=== PATIENT | male | born 1970 | race Caucasian/White ===

== ENCOUNTER 2020-04-03 00:49 | Outpatient (CLI) | payer OTHER, SELFPAY ==
[2020-04-03 17:41] LABS: SARS-CoV-2 RNA PCR Negative
== END 2020-04-03 00:50 | disposition home or self-care (01) ==
LOC: ANHCOVIDDT 00:49
PROVIDERS: PCP Family Medicine; Visit Provider Internal Medicine Gastroenterology
DX: Z01.812 Encounter for preprocedural laboratory examination (principal); Z20.828 Contact with and (suspected) exposure to other viral communicable diseases
CPT/HCPCS: 87635; C9803; U0003

== ENCOUNTER 2020-04-05 01:53 | Day surgery (SDC) | payer OTHER, SELFPAY ==
[2020-03-30 10:59] VITALS: BMI 31.6
[2020-04-05 07:42] VITALS: BP 124/76; PULSE 68; RESP 18; TEMP 36.6; O2SAT 98
[2020-04-05] MEDS: LACTATED RINGERS 1,000 ML 150 ML IV CONT (07:55)
--- NOTE | 2020-04-05 08:08 | P.HP_ITS ---
History of Present Illness History of Present Illness Consent: Risks, benefits, and alternatives have been discussed and questions answered. Patient agrees to proceed with procedure. Chief complaint: Dysphagia/Neoplasm Screening Narrative: Eric Hinds is a 49 year old male With dysphagia for solid food. He has a history of an esophageal stricture. He is also undergoing screening for colon cancer [facility] Family History Family History Mother Hypertension Social History Social History Smoking status: Never smoker Alcohol intake: current Drinks per week: 6 Alcohol use details: BEERS Substance use: never Substance use type: does not use Living arrangements: with family Gender identity (if verbalized by the patient): Male Spiritual care concerns: No Meds Home Medications and Allergies Home Medications Medication Instructions Recorded Confirmed Type No Home Medications 03/30/20 03/30/20 History Allergies Allergy/AdvReac Type Severity Reaction Status Date / Time No Known Allergies Allergy Unknown Verified 04/05/20 07:41 Vital Signs Vital Signs - 24 hr 04/05/20 07:42 Temperature 36.6 C Pulse Rate 68 Respiratory Rate 18 Blood Pressure 124/76 Pulse Oximetry 98 Exam Const: General: alert Orientation/consciousness: patient oriented x3 Resp: Auscultation: clear to auscultation bilaterally Cardio: Rhythm: regular rhythm GI: GI Palp: Yes Soft to palpation and No Tenderness to palpation present (GI) Neuro: General: patient oriented x3 Assessment and Plan Assessment and plan (1) Dysphagia: Code(s): R13.10 - Dysphagia, unspecified Status: Acute Assessment and Plan: EGD with possible biopsy or dilatation or cautery. (2) Colon cancer screening: Code(s): Z12.11 - Encounter for screening for malignant neoplasm of colon Status: Acute Assessment and Plan: Colonoscopy with possible biopsy or polypectomy or cautery or injection of substances.
--- NOTE | 2020-04-05 08:34 | WPDANESEPPF ---
Anes - Initial Pre Proc Eval Procedure: Operation Date: 04/05/20 08:30 Proposed Procedures p Esophagogastroduodenoscopy & Screening Colonoscopy - Elvin Jasso MD Date/Time: 04/05/20 08:34 Surgeon: lEvin Jasso MD Pre Op Diagnosis: Dysphagia/Neoplasm Screening Patient Data Age: 49 Gender: M Height: 5 ft 10 in Weight: 98 kg Last Vital Signs Temp 97.8 F 04/05/20 07:42 Pulse 68 04/05/20 07:42 Resp 18 04/05/20 07:42 BP 124/76 04/05/20 07:42 Pulse Ox 98 04/05/20 07:42 Allergies Allergy/AdvReac Type Severity Reaction Status Date / Time No Known Allergies Allergy Unknown Verified 04/05/20 07:41 Home Medications Medication Instructions Recorded Confirmed Type No Home Medications 03/30/20 03/30/20 History Patient hx anesthesia problems: none Family hx anesthesia problems: none PMFSH Past Medical History Medical History (Updated 04/05/20 @ 08:34 by Darren Nj MD) GERD (gastroesophageal reflux disease) Family History Family History Mother Hypertension Social History Social History Smoking status: Never smoker Alcohol intake: current Drinks per week: 6 Alcohol use details: BEERS Substance use: never Substance use type: does not use Living arrangements: with family Gender identity (if verbalized by the patient): Male Spiritual care concerns: No Anes - Eval Final PreProcedure Day of Procedure 04/05/20 08:34 Patient weight: overweight Heart: regular rate and rhythm Lungs: clear to auscultation Airway: Mallampati scale class II Neurological: alert and oriented Last oral intake: >/= 8 hours ASA classification: II Emergent: no Anesthetic plan: proceed Anesthesia type and monitoring: general GIVS and standard monitoring Informed Consent: The patient's anesthetic plan and its attendant risks and benefits were discussed with the patient/family/POA. Questions were solicited and answers provided to the satisfaction of the patient/family/POA.
--- NOTE | 2020-04-05 08:38 | WPDANESEPPF ---
Anes - Initial Pre Proc Eval Procedure: Operation Date: 04/05/20 08:30 Proposed Procedures p Esophagogastroduodenoscopy & Screening Colonoscopy - Elvin Jasso MD Date/Time: 04/05/20 08:38 Surgeon: Elvin Jasso MD Pre Op Diagnosis: Dysphagia/Neoplasm Screening Patient Data Age: 49 Gender: M Height: 5 ft 10 in Weight: 98 kg Last Vital Signs Temp 97.8 F 04/05/20 07:42 Pulse 68 04/05/20 07:42 Resp 18 04/05/20 07:42 BP 124/76 04/05/20 07:42 Pulse Ox 98 04/05/20 07:42 Allergies Allergy/AdvReac Type Severity Reaction Status Date / Time No Known Allergies Allergy Unknown Verified 04/05/20 07:41 Home Medications Medication Instructions Recorded Confirmed Type No Home Medications 03/30/20 03/30/20 History Patient hx anesthesia problems: none Family hx anesthesia problems: none PMFSH Past Medical History Medical History (Updated 04/05/20 @ 08:34 by Darren Nj MD) GERD (gastroesophageal reflux disease) Family History Family History Mother Hypertension Social History Social History Smoking status: Never smoker Alcohol intake: current Drinks per week: 6 Alcohol use details: BEERS Substance use: never Substance use type: does not use Living arrangements: with family Gender identity (if verbalized by the patient): Male Spiritual care concerns: No Anes - Eval Final PreProcedure Day of Procedure 04/05/20 08:38 Patient weight: overweight Heart: regular rate and rhythm Lungs: clear to auscultation Airway: Mallampati scale class II Neurological: alert and oriented Last oral intake: >/= 8 hours ASA classification: II Emergent: no Anesthetic plan: proceed Anesthesia type and monitoring: general GIVS and standard monitoring Informed Consent: The patient's anesthetic plan and its attendant risks and benefits were discussed with the patient/family/POA. Questions were solicited and answers provided to the satisfaction of the patient/family/POA.
[2020-04-05 09:05] VITALS: BP 82/63; PULSE 62; RESP 12; O2SAT 98
[2020-04-05 09:15] VITALS: BP 96/52; PULSE 62; RESP 18; O2SAT 98
[2020-04-05 09:25] VITALS: BP 122/68; PULSE 65; RESP 20; O2SAT 98
== END 2020-04-05 09:40 | disposition home or self-care (01) ==
PROVIDERS: PCP Family Medicine; Visit Provider Internal Medicine Gastroenterology
PROC: 0DJ08ZZ Inspection of Upper Intestinal Tract, Via Natural or Artificial Opening Endoscopic (ICD-10-PCS; CPT 43235; principal; 2020-04-05 08:30)
DX: Z12.11 Encounter for screening for malignant neoplasm of colon (principal); K22.2 Esophageal obstruction; K21.00 Gastro-esophageal reflux disease with esophagitis, without bleeding; K29.80 Duodenitis without bleeding
CPT/HCPCS: 45378; 43245; 43239; 88305; C1726; J2001; J2704; J7120

== ENCOUNTER 2021-03-26 00:02 | Observation (INO) | payer OTHER, SELFPAY ==
[2021-03-26] VITALS (14 sets, daily range): BP systolic 112–145; BP diastolic 60–81; PULSE 71–99; RESP 16–20; TEMP 36.6–37.4; O2SAT 92–96; BMI 31.8
--- NOTE | ~2021-03-26 | CT_ITS ---
EXAMINATION: CTA chest PE abdomen pel EXAM DATE: 03/26/2021 01:19 INDICATION: right side chest pain, right upper quadrant pain. TECHNIQUE: Spiral CTA of the chest (pulmonary arteries) was performed with 100 cc Omnipaque 350 intr avenous contrast injection. Images were acquired during the pulmonary arterial phase. Coronal maxi mum intensity projection 3D-reconstructions were created by the technologist on dedicated workstation . Axial, coronal and sagittal reformatted images were reviewed. Spiral CT of the abdomen and pelvis was then performed with the same intravenous contrast injection. Axial, coronal and sagittal reform atted images were reviewed. The dose-length product (DLP) for this examination was 1479.97 mGy-cm. The exposure was tailored according to patient size (auto mA exposure control), and iterative recons truction (ASIR) was used as additional dose reduction technique. There is no prior study for compari son. FINDINGS: CHEST: There are several bibasilar filling defects, segmental and subsegmental pulmonary emboli. The re is some ill-defined airspace disease within portions of the lung supplied by these pulmonary arter ies, probably infarction. Pneumonia not excludable. No thoracic aortic dissection. There are no ple ural or pericardial effusions. Tracheobronchial tree is patent. There is no mediastinal, hilar or axillary lymphadenopathy. There is no pneumothorax. Heart normal in size. No evidence of coron zach arterial calcification. There is a 5 cm right thyroid lobe nodule; this is large enough to recomm end ultrasound-guided biopsy. ABDOMEN PELVIS: The liver, spleen, adrenal glands and pancreas are unremarkable. Gallbladder is unre markable. No biliary obstruction. Portal and splenic veins are patent. Kidneys enhance symmetrical ly. There is no hydronephrosis. The prostate is unremarkable. The bladder is unremarkable. There is no retroperitoneal or pelvic lymphadenopathy. There are no findings to suggest appendicitis. The stomach and small bowel are unremarkable. There is expected amount of colonic stool. No free intraperitoneal gas. Several pelvic subcentimeter sc lerotic foci probably bone islands. IMPRESSION: 1. Positive for several bibasilar subsegmental pulmonary emboli. Airspace disease in similar distrib ution, pulmonary infarction or pneumonia. 2. Right thyroid lobe 5 cm nodule; ultrasound-guided biopsy indicated. 3. No acute intra-abdominal findings. Reviewed, dictated and finalized at location A. IMPRESSION: 1. Positive for several bibasilar subsegmental pulmonary emboli. Airspace dise ase in similar distribution, pulmonary infarction or pneumonia. 2. Right thyroid lobe 5 cm nodule; ultrasound-guided biopsy indicated. 3. No acute intra-abdominal findings.
--- NOTE | ~2021-03-26 | US_ITS ---
US venous doppler [facility] DATE: 03/26/2021 11:16 INDICATION: Pulmonary embolism TECHNIQUE: Real-time and color flow imaging and Doppler analysis of the veins of both lower extremiti es COMPARISON: None FINDINGS: The greater saphenous veins are patent. There is spontaneous and phasic flow and normal aug mentation and color flow signal and normal compression of the deep veins of both lower extremities. N o evidence of deep venous thrombosis of the lower extremities IMPRESSION: No evidence of deep venous thrombosis of the lower extremities Reviewed, dictated and finalized at Location [facility]. Reviewed, dictated and finalized at location B.
--- NOTE | ~2021-03-26 | US_ITS ---
EXAMINATION: US thyroid DATE: 03/26/2021 11:15 INDICATION: Thyroid mass seen on CT TECHNIQUE: Multiple ultrasound images of the thyroid were obtained. COMPARISON: CT dated 03/26/2021 FINDINGS: The right thyroid lobe measures 6.6 5.6 x 4.3 cm. The left thyroid lobe measures 4.5 x 1.4 x 1.0 cm. 6.3 x 4.8 x 3.6 cm wider than tall solid hypoechoic right thyroid mass with smooth margins and with out echogenic foci. (TI-RADS 4, moderately suspicious , FNA if >=1.5 cm, annual followup is >=1 cm). There is normal echotexture, echogenicity and vascular flow throughout the left thyroid lobe without discrete nodule. IMPRESSION: 1. 6.3 cm TI RADS 4 right thyroid nodule. Recommend ultrasound-guided biopsy. Reviewed, dictated and finalized at location A.
--- NOTE | ~2021-03-26 | XR_ITS ---
EXAMINATION: XR chest 2V EXAM DATE: 03/27/2021 15:33 INDICATION: Fever, SOB. TECHNIQUE: Frontal and lateral projections of the chest obtained and reviewed. Correlation is made to CT pulmonary scan from yesterday. FINDINGS: There is bibasilar airspace disease with some volume loss. This is partly atelectasis. Giv en the small pulmonary emboli seen on yesterday's CT, some component of infarction also likely. Pneum onia not excludable. Small pleural effusions. No pneumothorax. Cardiomediastinal silhouette is normal . There are no osseous abnormalities identified. IMPRESSION: 1. Progression of bibasilar airspace disease combination of likely combination of atelectasis and in farction. Pneumonia not excludable. 2. Developing small pleural effusions. Reviewed, dictated and finalized at location A. IMPRESSION: 1. Progression of bibasilar airspace disease combination of likely combination of atelectasis and infarction. Pneumonia not excludable. 2. Developing small pleural effusions.
--- NOTE | 2021-03-26 00:12 | ECG_ITS ---
Measurements Intervals [place] Rate: 88 P: 31 WV: 179 QRS: 5 QRSD: 88 T: 7 QT: 335 QTc: 407 Interpretive Statements SINUS RHYTHM POSSIBLE LEFT ATRIAL ENLARGEMENT INCOMPLETE RIGHT BUNDLE BRANCH BLOCK BORDERLINE T WAVE ABNORMALITY- INFERIOR LEADS BASELINE ARTIFACT- III, AVL, AVF, V1-V3 BORDERLINE ECG Electronically Signed On 03-26-2021 8:11:34 CDT by Hugh Ibanez D.O.
--- NOTE | 2021-03-26 00:13 | ED.GENADULT ---
HPI - General Adult General Chief complaint: Chest Pain Stated complaint: RUQ pain Time Seen by Provider: 03/26/21 00:13 History of Present Illness HPI narrative: Patient 50-year-old gentleman who presents the emergency department chief complaint of right-sided abdominal pain and right upper quadrant pain. Patient states that he recently got back from vacation to the [facility] after driving. Patient states that started having a sharp-like pain in the right upper quadrant/right lower chest patient states rib pain radiates to the back reports that sharp worse with inspiration and worse with movement. Patient states that he got all diaphoretic with it reports that he feels little short of breath with it as well. The patient reports has been vaccinated for COVID-19 reports no prior history of cardiac disease no prior history of thromboembolic disease and denies surgical history to the abdomen. Related Data Home Medications Medication Instructions Recorded Confirmed No Home Medications 03/30/20 03/30/20 Allergies Allergy/AdvReac Type Severity Reaction Status Date / Time No Known Allergies Allergy Unknown Verified 04/05/20 07:41 Review of Systems Review of Systems: A 10 system review of systems was completed on the patient and is negative except for what is stated in the HPI. Nursing and ancillary documentation was reviewed. PMFSH Past Medical History Medical History GERD (gastroesophageal reflux disease) Family History Family History Mother Hypertension Social History Social History Smoking status: Never smoker Alcohol intake: current Drinks per week: 6 Alcohol use details: BEERS Substance use: never Substance use type: does not use Gender identity (if verbalized by the patient): Male Spiritual care concerns: No Exam Narrative: GENERAL: Well-appearing, well-nourished, and in mild pain distress. HEAD: Normocephalic, atraumatic. EYES: PERRLA and EOMI. ENT: Nares clear, no rhinorrhea or epistaxis. Mucous membranes moist. NECK: Supple. CHEST: Clear to auscultation. No respiratory distress. HEART: Regular rate and rhythm. No murmur heard. Normal peripheral pulses. ABDOMEN: Soft, nontender, nondistended, normal active bowel sounds. EXTREMITIES: Normal range of motion. No edema. SKIN: Warm, dry, no rash. NEURO: No focal deficits. Alert and oriented x3. PSYCH: Normal mood and affect. Course Vital Signs Vital signs: Vital Signs Temperature 36.6 C 03/26/21 00:12 Pulse Rate 91 03/26/21 00:12 Respiratory Rate 20 03/26/21 00:12 Blood Pressure 145/81 H 03/26/21 00:12 Pulse Oximetry 95 03/26/21 00:12 Temperature 36.6 C 03/26/21 00:12 Pulse Rate 75 03/26/21 01:43 Respiratory Rate 18 03/26/21 01:43 Blood Pressure 125/75 03/26/21 01:43 Pulse Oximetry 94 03/26/21 01:43 Medical Decision Making Vital Signs Vital Signs: Vital Signs Temperature 36.6 C 03/26/21 00:12 Pulse Rate 91 03/26/21 00:12 Respiratory Rate 20 03/26/21 00:12 Blood Pressure 145/81 H 03/26/21 00:12 Pulse Oximetry 95 03/26/21 00:12 Temperature 36.6 C 03/26/21 00:12 Pulse Rate 75 03/26/21 01:43 Respiratory Rate 18 03/26/21 01:43 Blood Pressure 125/75 03/26/21 01:43 Pulse Oximetry 94 03/26/21 01:43 Lab Data Result diagrams: 03/26/21 00:33 03/26/21 00:33 Labs: Lab Results 03/26/21 03/26/21 03/26/21 Range/Units 00:33 00:33 00:33 WBC 11.6 H (4.5-10.0) K/mm3 RBC 4.32 L (4.6-6.20) M/mm3 Hgb 14.1 (14.0-18.0) g/dL Hct 40.9 L (42.0-52.0) % MCV 94.7 (80-100) fl MCH 32.6 (26-34) pg MCHC 34.5 (32-36) g/dl RDW 12.4 (11.5-14.5) % Plt Count 231 (150-375) k/mm3 MPV 9.0 (7.4-10.4) fl Imm
[2021-03-26] MEDS: MORPHINE SULFATE (*CRX) 4 MG/ML INJ IV PUSH (00:38)
[2021-03-26] MEDS: ONDANSETRON INJ 4 MG/2 ML VIAL IV PUSH (00:38)
[2021-03-26] MEDS: SODIUM CHLORIDE 0.9% IV 1,000 ML 999 ML IV CONT (00:38)
[2021-03-26 00:39] LABS: Basophils Percent Auto 0.3 % (0.2-1.2); Eosinophils Absolute Auto 0.1 K/mm3 (0-0.3); Eosinophils Percent Auto 1.2 % (0-4.4); Hematocrit 40.9 % (42.0-52.0); Hemoglobin 14.1 g/dL (14.0-18.0); Immature Granulocyte Absolute 0.06 K/mm3 (0.00-0.031); Immature Granulocyte Percent A 0.5 % (0-0.5); Lymphocytes Absolute Auto 1.74 K/mm3 (0.9-3.2); Mean Corpuscular HGB Conc 34.5 g/dl (32-36); Mean Corpuscular Hemoglobin 32.6 pg (26-34); Mean Corpuscular Volume 94.7 fl (80-100); Monocytes Absolute Auto 1.3 K/mm3 (0.1-0.6); Monocytes Percent Auto 11.1 % (2.6-8.5); Neutrophils Absolute Auto 8.4 K/mm3 (1.3-6.7); Neutrophils Percent Auto 71.9 % (45.5-73.1); Platelet Count Result 231 k/mm3 (150-375); Red Blood Count 4.32 M/mm3 (4.6-6.20); Red Cell Distribution Width 12.4 % (11.5-14.5); White Blood Count 11.6 K/mm3 (4.5-10.0)
[2021-03-26 00:51] LABS: Partial Thromboplastin Time 30.3 SECONDS (22.3-36.8); Prothrombin Time 12.6 Seconds (11.1-14.7)
[2021-03-26 00:53] LABS: Magnesium 1.9 mg/dL (1.6-2.3)
[2021-03-26 00:54] LABS: Alanine Aminotransferase 32 U/L (4-50); Albumin Level 4.5 g/dL (3.5-5.1); Alkaline Phosphatase 96 U/L (38-126); Anion Gap 12 mmol/L (8-16); Aspartate Amino Transferase 31 U/L (17-59); Bilirubin,Total 1.4 mg/dL (0.2-1.3); Blood Urea Nitrogen 18 mg/dL (9-20); Calcium 9.7 mg/dL (8.4-10.2); Carbon Dioxide 22 mmol/L (22-30); Chloride 105 mmol/L (98-107); Estimated CRCL calculation 99 ml/min; Estimated Glomerular Filt Rate > 60; Glucose 115 mg/dL (65-110); Lactic Acid Reflex 0.6 mmol/L (0.7-2.1); Lipase 110 U/L (23-300); Potassium 4.1 mmol/L (3.4-5.0); Sodium 139 mmol/L (137-145)
[2021-03-26 01:05] LABS: Troponin I < 0.012 ng/mL (0.000-0.034)
[2021-03-26 01:06] LABS: Troponin I < 0.012 ng/mL (0.000-0.034)
[2021-03-26 02:04] LABS: Add Urine Microscopic? YES; Appearance Urine Clear (Clear); Bilirubin Urine Negative (Negative); Blood Urine Negative (Negative); Color Urine Yellow (Yellow); Glucose Urine UA Negative (Negative); Ketones Urine Trace mg/dL (Negative); Leukocyte Esterase Ur Negative LEU/UL (Negative); Mucus Urine Rare /lpf; Nitrate Urine Negative (Negative); Protein Urine Negative (Negative); RBC Urine 0-2 /hpf (0-2); Squamous Epithelial Cell Urine Rare /hpf (Few); Urobilinogen Urine Negative mg/dL (<2.0); WBC Urine 0-3 /hpf
[2021-03-26 02:50] LABS: Specific Grav Ur 1.053 (1.001-1.035)
[2021-03-26 03:06] LABS: Basophils Percent Auto 0.3 % (0.2-1.2); Eosinophils Absolute Auto 0.1 K/mm3 (0-0.3); Eosinophils Percent Auto 1.1 % (0-4.4); Hematocrit 39.9 % (42.0-52.0); Hemoglobin 13.6 g/dL (14.0-18.0); Immature Granulocyte Absolute 0.05 K/mm3 (0.00-0.031); Immature Granulocyte Percent A 0.5 % (0-0.5); Lymphocytes Absolute Auto 1.46 K/mm3 (0.9-3.2); Lymphocytes Percent Auto 14.1 % (18.3-44.2); Mean Corpuscular HGB Conc 34.1 g/dl (32-36); Mean Corpuscular Hemoglobin 32.7 pg (26-34); Mean Corpuscular Volume 95.9 fl (80-100); Mean Platelet Volume 8.8 fl (7.4-10.4); Monocytes Absolute Auto 1.1 K/mm3 (0.1-0.6); Monocytes Percent Auto 10.2 % (2.6-8.5); Neutrophils Absolute Auto 7.6 K/mm3 (1.3-6.7); Neutrophils Percent Auto 73.8 % (45.5-73.1); Platelet Count Result 212 k/mm3 (150-375); Red Blood Count 4.16 M/mm3 (4.6-6.20); Red Cell Distribution Width 12.6 % (11.5-14.5); White Blood Count 10.4 K/mm3 (4.5-10.0)
[2021-03-26 03:16] LABS: Prothrombin Time 12.9 Seconds (11.1-14.7)
[2021-03-26 03:17] LABS: Partial Thromboplastin Time 31.7 SECONDS (22.3-36.8)
[2021-03-26] MEDS: HEPARIN SOD/D5W 100 UNITS/ML 25,000 UNITS/250 ML BAG 15 UNITS IV CONT (03:26)
[2021-03-26] MEDS: HEPARIN SODIUM 5,000 UNITS/ML VIAL 6500 UNITS IV PUSH (03:26)
--- NOTE | 2021-03-26 04:09 | PC.NURSE ---
Pt was transferred to the floor with heparin drip running so this RN did not stop IV time.
--- NOTE | 2021-03-26 04:16 | PM.IMHP ---
H&P: HPI History of Present Illness Date/Time: 03/26/21 04:16 Chief Complaint: Right chest pain Narrative: 50-year-old male with past medical history of esophageal stricture, reflux esophagitis but is otherwise healthy who presented to the ER via private vehicle from home with right-sided chest pain. The patient recently returned from a [address] trip to the [facility]. He began having pleuritic sharp pain on Friday (03/22/2021). He reports that initially the pain started in his right neck shoulder and right upper ribcage. Initially it was more of an achy dull sensation. However over the last 24 hours the pain has become more sharp in intensity specially with deep breathing. He states that he may have a little bit of shortness of breath. He has not been having any cough or congestion. He denies any fevers or chills. He denied any lower extremity swelling or calf pain but on exam the patient's right calf appears to be slightly larger than the left. The pain is worse with inspiration and movement. He rates the pain as a 6/10. He has had some associated episodes of diaphoresis. He received both of the Pfizer COVSkySQL vaccines with his 2nd vaccine approximately 3 months ago. He denies any known ill contacts. He has not been having any cough, congestion, fever or or chills. He denies any history of prior blood clots. He denies any constipation, hair loss or fatigue. CT did demonstrate a the previously unknown thyroid nodule. He denies any dysphagia, GERD or dyspepsia. He reports that he was taking 4 full strength aspirin spread out throughout the day to help treat his pain without any real relief. He did report that the pain would radiate down into the lower ribcage but was not truly abdominal in nature. Review of Systems Review of Systems: 12 systems were reviewed with pertinent positives and negatives per HPI. Except as documented in the HPI, all other systems were reviewed and are negative. [facility] Past Medical History Medical History GERD (gastroesophageal reflux disease) With reflux esophagitis and duodenitis on EGD 03/2020 Normal colonoscopy (03/2020) Schatzki's ring of distal esophagus (~2015) Surgical History Surgical History Status post dilatation of esophageal stricture (03/2020) Family History Family History (Updated 03/26/21 @ 05:52 by Lisa Lewis DO) Mother Hypertension Father , At age 73 Dementia Social History Social History (Updated 03/26/21 @ 05:54 by Lisa Lewis DO) Social History: He is . He and his has 3 children. 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 He drinks 3-4 beers a week. Smoking status: Never smoker Alcohol intake: current Drinks per week: 4 Alcohol use details: BEERS Substance use: never Substance use type: does not use Gender identity (if verbalized by the patient): Male Spiritual care concerns: No Meds Home Medications and Allergies Home Medications Medication Instructions Recorded Confirmed Type No Home Medications 03/30/20 03/30/20 History Allergies Allergy/AdvReac Type Severity Reaction Status Date / Time No Known Allergies Allergy Unknown Verified 03/26/21 05:03 Vital Signs Vital Signs - 24 hr 03/26/21 00:12 03/26/21 01:43 03/26/21 03:36 Temperature 98 F Pulse Rate 91 75 74 Respiratory Rate 20 18 18 Blood Pressure 145/81 H 125/75 119/79 Pulse Oximetry 95 94 92 03/26/21 04:08 Temperature 98.3 F Pulse Rate 73 Respiratory Rate 18 Blood Pressure 119/69 Pulse Oximetry 92 Exam Narrative: PHYSICAL EXAM: WEIGHT 100.5 kg BMI 31.8 General: Well-developed, overweight, no acute distress HEENT: No conjunctival pallor, pupils are equal and reactive, no scleral icterus, head is normocephalic atraumatic, right greater than left thyromegaly Respiratory: Clear to auscultati
--- NOTE | 2021-03-26 05:02 | ADMGEN ---
This patient, Eric Hinds, was admitted to [facility] Surg Room 326-01. Patient/family oriented to hospital policies and general routines including ID bracelet, bed and alarms, visiting hours, pain management, procedures, bathroom and other care routines, personal items, smoking policy, room service/diet, and visiting hours. Information on how to activate the Rapid Response Team has been discussed. Patient/Family are encouraged to report perceived risks to care and to ask questions if they do not understand what they are told or what they should do.
[2021-03-26 10:40] LABS: Partial Thromboplastin Time 72.1 SECONDS (22.3-36.8)
--- NOTE | 2021-03-26 14:52 | PM.IMPN ---
Progress Note: A&P Assessment and Plan (1) Pulmonary embolism and infarction: Code(s): I26.99 - Other pulmonary embolism without acute cor pulmonale Status: Acute Assessment and Plan: Most likely due to prolonged road trip and immobility CTA showed several bibasilar subsegmental pulmonary emboli Echocardiogram pending to rule out right heart strain He is hemodynamically stable with no oxygen requirements and no respiratory distress Continue heparin drip per protocol while awaiting echocardiogram Care coordination consultation to perez oral anticoagulants. Will plan to transition to p.o. anticoagulation following echocardiogram (2) Thyroid mass: Code(s): E07.9 - Disorder of thyroid, unspecified Status: Acute Assessment and Plan: Incidental right thyroid lobe 5 cm nodule noted on CTA Ultrasound showed 6.3 cm TI RADS 4 right thyroid nodule with recommendations for follow-up ultrasound guided biopsy TSH is within normal limits Spoke with IR, Dr. Ordoñez and my supervising physician. Reports would need to be off heparin for 24 hours following biopsy, therefore will wait while treating acute PE and pursue this outpatient down the road. (3) Pulmonary infiltrate: Code(s): R91.8 - Other nonspecific abnormal finding of lung field Status: Acute Assessment and Plan: The patient does have the associated infiltrate near his right lower lobe pulmonary embolism which is suggestive of infarct. However, he also has bilateral lower lobe infiltrates which could be consistent with atelectasis versus infection. Also atelectasis from splinting with his pleuritic pain considered. Cannot rule out COVID-19. COVID test is pending; continue isolation precautions while awaiting results. Not a candidate for dexamethasone or remdesivir at this time as he has no oxygen requirements Continue incentive spirometry Treatment for acute PE as described above Subjective Date/time seen: 03/26/21 14:52 Interval history: Date of service: 03/26/2021 Eric Hinds is a 50-year-old male with a history of GERD who is seen in follow-up for pulmonary embolism. He still has some mild right-sided pleuritic chest pain only noticeable with deep inspiration. He denies cough. No shortness breath. No palpitations. Denies nausea, vomiting, fever, chills. No dizziness, lightheadedness, or weakness. Appetite has been good. He has been able to get up and ambulate around his room. No urinary symptoms. Reports regular bowel movements. Denies neck pain, swelling, dysphagia. Review of Systems Review of Systems: All systems reviewed & are unremarkable except as noted in HPI and below Exam Narrative: Mr. Hinds is a well-nourished, well-appearing 50-year-old male who is lying semi recumbent in bed. He appears comfortable and is in NARD. Neuro: awake, alert and oriented x4, speech clear, no focal neuro deficits noted HEENMT: normocephalic, atraumatic, EOMI, sclerae anicteric, moist oral mucosa Neck: supple, no lymphadenopathy Respiratory: clear to auscultation bilaterally, nonlabored breathing Cardio: regular rate, regular rhythm with S1-S2 Abdomen: nondistended, normoactive bowel sounds, soft, nontender to palpation Extremities: no edema, erythema, or tenderness to palpation, DP pulses 2+ bilaterally Skin: no rashes or lesions, warm and dry Psych: appropriate mood and affect, judgment and insight intact Objective Data Vital Signs Vital Signs: Vital Signs - 24 hr 03/26/21 00:12 03/26/21 01:43 03/26/21 03:36 Temperature 98 F Pulse Rate 91 75 74 Respiratory Rate 20 18 18 Blood Pressure 145/81 H 125/75 119/79 Pulse Oximetry 95 94 92 03/26/21 04:00 03/26/21 04:08 03/26/21 06:00 Temperature 98.3 F 98.0 F Pulse Rate 76 73 71 Respiratory Rate 18 18 Blood Pressure 119/69 112/60 Pulse Oximetry 92 93 03/26/21 08:00 03/26/21 08:43 03/26/21 12:06 Temperature 99.3 F 99.1
[2021-03-26 17:12] LABS: Partial Thromboplastin Time 59.2 SECONDS (22.3-36.8)
[2021-03-26] MEDS: ACETAMINOPHEN 325 MG TABLET 650 MG PO (17:19)
[2021-03-26] MEDS: HEPARIN SODIUM 5,000 UNITS/ML VIAL 3500 UNITS IV PUSH (17:23)
[2021-03-26] MEDS: HEPARIN SOD/D5W 100 UNITS/ML 25,000 UNITS/250 ML BAG 17 UNITS IV CONT (20:15)
[2021-03-26 20:20] LABS: SARS-CoV-2 RNA PCR Negative
[2021-03-27] VITALS (8 sets, daily range): BP systolic 123–141; BP diastolic 51–68; PULSE 74–89; RESP 18–24; TEMP 36.5–38.1; O2SAT 92–94
--- NOTE | 2021-03-27 | ECHO_ITS ---
Patient Info Name: Eric Hinds Age: 50 years : 1970 Gender: Male Ht: 70 in Wt: 221 lbs BSA: 2.25 m2 HR: 73 bpm BP: 135 / 68 mmHg Exam Date: 03/27/2021 8:37 AM Exam Location: [facility] Patient Status: Inpatient Admit Date: 03/26/2021 Staff Ordering Physician: Lisa Lewis DO [place] Hand: Andrés Cortes RDCS, RT Attending Provider: Martha Clayton PA-C Referring Physician: Joshua IRELAND; Exam Type: CA echo doppler color flow Study Info Indications I26.09 - Other pulmonary embolism with acute cor pulmonale Complete two-dimensional, color flow and Doppler transthoracic echocardiogram is performed. Strain analysis performed. Summary 1. Complete two-dimensional, color flow and Doppler transthoracic echocardiogram is performed. 2. Left ventricular chamber dimension is normal. 3. Left ventricular systolic function is normal, estimated at 60-65%. 4. The left ventricular diastolic function is normal. 5. E/e' 5 is not elevated. 6. Global longitudinal strain is slightly abnormal at -16.8%. 7. There is trace pulmonic regurgitation. 8. Dilated inferior vena cava with >50% collapse upon inspiration consistent with elevated right atrial pressure, 10 mmHg. Left Ventricle E/e' 5 is not elevated. Global longitudinal strain is slightly abnormal at -16.8%. Left ventricular chamber dimension is normal. Left ventricular systolic function is normal, estimated at 60-65%. The left ventricular diastolic function is normal. Right Ventricle Right ventricular systolic function is normal and with normal TAPSE 2.8 cm. Right ventricular chamber dimension is normal. Left Atria Left atrial chamber dimension is normal. Right Atria Right atrial chamber dimension is normal. Aortic Valve The aortic valve is trileaflet. There is no aortic valve stenosis. There is no aortic valve regurgitation. Pulmonic Valve There is trace pulmonic regurgitation. Mitral Valve There is no mitral valve stenosis. There is no mitral valve regurgitation. Tricuspid Valve There is no tricuspid valve regurgitation. Pericardium/Pleural There is no pericardial effusion. Inferior Vena Cava Dilated inferior vena cava with >50% collapse upon inspiration consistent with elevated right atrial pressure, 10 mmHg. Aorta The aortic root size at the sinus of Valsalva is normal. Left Ventricular Outflow Tract Name Value Normal LVOT 2D LVOT Diameter 2.1 cm LVOT Doppler LVOT Peak Gradient 4 mmHg LVOT Mean Gradient 2 mmHg LVOT VTI 20 cm LVOT VTI/AV VTI Ratio 0.7 LVOT Stroke Volume 69 ml LVOT CO 5.5 l/min LVOT CI 2.4 l/min/m2 Mitral Valve Name Value Normal MV Doppler
[2021-03-27 06:45] LABS: Basophils Percent Auto 0.3 % (0.2-1.2); Eosinophils Absolute Auto 0.2 K/mm3 (0-0.3); Eosinophils Percent Auto 1.5 % (0-4.4); Hematocrit 40.4 % (42.0-52.0); Hemoglobin 13.8 g/dL (14.0-18.0); Immature Granulocyte Absolute 0.05 K/mm3 (0.00-0.031); Immature Granulocyte Percent A 0.5 % (0-0.5); Lymphocytes Absolute Auto 1.18 K/mm3 (0.9-3.2); Lymphocytes Percent Auto 11.4 % (18.3-44.2); Mean Corpuscular HGB Conc 34.2 g/dl (32-36); Mean Corpuscular Hemoglobin 32.6 pg (26-34); Mean Corpuscular Volume 95.5 fl (80-100); Mean Platelet Volume 9.1 fl (7.4-10.4); Monocytes Absolute Auto 0.9 K/mm3 (0.1-0.6); Monocytes Percent Auto 8.9 % (2.6-8.5); Neutrophils Absolute Auto 8.1 K/mm3 (1.3-6.7); Neutrophils Percent Auto 77.4 % (45.5-73.1); Platelet Count Result 231 k/mm3 (150-375); Red Blood Count 4.23 M/mm3 (4.6-6.20); Red Cell Distribution Width 12.6 % (11.5-14.5); White Blood Count 10.4 K/mm3 (4.5-10.0)
[2021-03-27 06:49] LABS: Anion Gap 8 mmol/L (8-16); Blood Urea Nitrogen 13 mg/dL (9-20); Calcium 9.1 mg/dL (8.4-10.2); Carbon Dioxide 26 mmol/L (22-30); Chloride 105 mmol/L (98-107); Estimated CRCL calculation 112 ml/min; Estimated Glomerular Filt Rate > 60; Glucose 107 mg/dL (65-110); Sodium 139 mmol/L (137-145)
[2021-03-27 06:52] LABS: Partial Thromboplastin Time 75.5 SECONDS (22.3-36.8)
[2021-03-27] MEDS: ACETAMINOPHEN 325 MG TABLET 650 MG PO (06:57)
[2021-03-27] MEDS: RIVAROXABAN 15 MG TABLET PO ×2 (10:19→20:45)
[2021-03-27] MEDS: ACETAMINOPHEN 500 MG TABLET 1000 MG PO (15:00)
--- NOTE | 2021-03-27 16:26 | PM.IMPN ---
Progress Note: A&P Assessment and Plan (1) Pulmonary embolism and infarction: Code(s): I26.99 - Other pulmonary embolism without acute cor pulmonale Status: Acute Assessment and Plan: Most likely due to prolonged road trip and immobility CTA showed several bibasilar subsegmental pulmonary emboli Echocardiogram reviewed with no evidence of heart strain He is hemodynamically stable with no oxygen requirements and no respiratory distress Heparin drip discontinued today and he was initiated on Xarelto. He will continue Xarelto 15 mg BID x21 days, then 20 mg daily. (2) Pulmonary infiltrate: Code(s): R91.8 - Other nonspecific abnormal finding of lung field Status: Acute Assessment and Plan: The patient does have the associated infiltrate near his right lower lobe pulmonary embolism which is suggestive of infarct. Secondary to PE. Also with evidence of atelectasis. COVID-19 test negative. Continue incentive spirometry Treatment for acute PE as described above (3) Thyroid mass: Code(s): E07.9 - Disorder of thyroid, unspecified Status: Acute Assessment and Plan: Incidental right thyroid lobe 5 cm nodule noted on CTA Ultrasound showed 6.3 cm TI RADS 4 right thyroid nodule with recommendations for follow-up ultrasound guided biopsy TSH is within normal limits Spoke with IR, Dr. Ordoñez and my supervising physician. Reports would need to be off heparin for 24 hours following biopsy, therefore will wait while treating acute PE and pursue this outpatient down the road. (4) Fever: Code(s): R50.9 - Fever, unspecified Status: Acute Assessment and Plan: Low grade fever 100.5 Repeat CXR showed atelectasis/infarct which is the likely cause of low grade fever No signs or symptoms to suggest underlying infection. No urinary symptoms. Acetaminophen for fever Monitor closely. Hopeful discharge tomorrow morning if resolution of fever. Subjective Date/time seen: 03/27/21 16:26 Interval history: Date of service: 03/27/2021 Eric Hinds is a 50-year-old male with a history of GERD who is seen in follow-up for pulmonary embolism. He is feeling about the same today. He still has right-sided pleuritic pain with inspiration. He denies cough, hemoptysis, chest pain, shortness breath, nausea, vomiting, dizziness, lightheadedness, abdominal pain. No leg pain or swelling. Appetite has been good. Denies urinary symptoms. Endorses a frontal tension-type headache. [place] a little feverish this afternoon. Denies chills. Review of Systems Review of Systems: All systems reviewed & are unremarkable except as noted in HPI and below Exam Narrative: Mr. Hinds is a well-nourished, well-appearing 50-year-old male who is standing up by the bedside. He appears comfortable and is in NARD. Neuro: awake, alert and oriented x4, speech clear, no focal neuro deficits noted HEENMT: normocephalic, atraumatic, EOMI, sclerae anicteric, moist oral mucosa Neck: supple, no lymphadenopathy Respiratory: clear to auscultation bilaterally, nonlabored breathing Cardio: regular rate, regular rhythm with S1-S2 Abdomen: nondistended, normoactive bowel sounds, soft, nontender to palpation Extremities: no edema, erythema, or tenderness to palpation, DP pulses 2+ bilaterally Skin: no rashes or lesions, warm and dry Psych: appropriate mood and affect, judgment and insight intact Objective Data Vital Signs Vital Signs: Vital Signs - 24 hr 03/26/21 20:00 03/26/21 20:35 03/27/21 00:00 Temperature 98.1 F Pulse Rate 81 87 74 Respiratory Rate 20 20 Blood Pressure 130/66 Pulse Oximetry 95 96 03/27/21 04:00 03/27/21 06:00 03/27/21 08:50 Temperature 99.4 F Pulse Rate 79 84 89 Respiratory Rate 20 Blood Pressure 135/68 Pulse Oximetry 92 03/27/21 12:00 03/27/21 14:00 Temperature 100.5 F H Pulse Rate 82 87 Respiratory Rate 24 H Blood Press
[2021-03-28] VITALS: PULSE 82
[2021-03-28 04:00] VITALS: PULSE 78
[2021-03-28 06:00] VITALS: BP 130/75; PULSE 89; RESP 18; TEMP 37; O2SAT 92
[2021-03-28 06:26] LABS: Hematocrit 38.8 % (42.0-52.0); Hemoglobin 13.2 g/dL (14.0-18.0); Mean Corpuscular Hemoglobin 32.2 pg (26-34); Mean Corpuscular Volume 94.6 fl (80-100); Mean Platelet Volume 8.7 fl (7.4-10.4); Platelet Count Result 259 k/mm3 (150-375); Red Cell Distribution Width 12.2 % (11.5-14.5); White Blood Count 9.7 K/mm3 (4.5-10.0)
[2021-03-28 08:00] VITALS: PULSE 95
--- NOTE | 2021-03-28 08:40 | PM.DS ---
DS: Admitting Diagnosis Discharge Date 03/28/21 Admitting Diagnosis Pulmonary embolism DS: Discharge Diagnosis Discharge Diagnosis (1) Pulmonary embolism and infarction: Code(s): I26.99 - Other pulmonary embolism without acute cor pulmonale Status: Acute Assessment and Plan: Most likely due to prolonged road trip and immobility CTA showed several bibasilar subsegmental pulmonary emboli Echocardiogram reviewed with no evidence of heart strain He remained hemodynamically stable and did not have any oxygen requirements. No respiratory distress. Started on heparin drip and transitioned to Xarelto. He will continue Xarelto 15 mg BID x21 days, then 20 mg daily. Bilateral venous Dopplers negative (2) Pulmonary infiltrate: Code(s): R91.8 - Other nonspecific abnormal finding of lung field Status: Acute Assessment and Plan: Infiltrate near his right lower lobe pulmonary embolism noted on imaging which is suggestive of infarct, secondary to PE. Also with evidence of atelectasis. COVID-19 test negative. Continue incentive spirometry Treatment for acute PE as described above (3) Thyroid mass: Code(s): E07.9 - Disorder of thyroid, unspecified Status: Acute Assessment and Plan: Incidental right thyroid lobe 5 cm nodule noted on CTA Ultrasound showed 6.3 cm TI RADS 4 right thyroid nodule with recommendations for follow-up ultrasound guided biopsy TSH is within normal limits Spoke with IR, Dr. Ordoñez and my supervising physician. Reports would need to be off heparin for 24 hours following biopsy, therefore will wait while treating acute PE and pursue this outpatient down the road. Spoke with his PCP office and informed of need for thyroid biopsy (4) Fever: Code(s): R50.9 - Fever, unspecified Status: Acute Assessment and Plan: Low grade fever 100.5 on 03/27/2021 Repeat CXR showed atelectasis/infarct which is the likely cause of low grade fever No signs or symptoms to suggest underlying infection. No urinary symptoms. COVID-19 test negative. Fever resolved with Tylenol and he had no subsequent fevers DS: Summary Hospital Course Hospital Course: Date of admission: 03/26/21 Date of discharge: 03/28/21 Eric Hinds is a 50-year-old male with a history of GERD who presented to the emergency department on 03/26/21 from with complaints of right-sided pleuritic pain and shortness presentation to emergency, vital signs were stable he is afebrile, he had mild leukocytosis with additional CBC and BMP unremarkable, troponin negative and CTA showed several basilar subsegmental pulmonary emboli. He was admitted to the hospitalist service for further evaluation. Please see above for further details. Was initiated on anticoagulation therapy. His pleuritic pain and shortness of breath improved. He did not supplemental oxygen. He was feeling much better and requested discharge home. Given his overall improvement, he was determined to no longer inpatient care was felt to be stable for discharge. We discussed worrisome signs and symptoms for which to return and he was educated on his medications. He was discharged in hemodynamically stable condition on 03/28/2021. He was instructed to follow up with his PCP. I called their office to inform them of details of his hospitalization Status at Discharge Functional status at discharge: independent ambulation Overall status at discharge: patient is back to baseline Time Spent with Patient Time attestation: Total time spent providing and/or coordinating discharge services: 45 minutes Time spent: Greater than 30 minutes Exam Narrative: Mr. Hinds is a well-nourished, well-appearing 50-year-old male who is standing up by the bedside. He appears comfortable and is in NARD. Neuro: awake, alert and oriented x4, speech clear, no focal neuro deficits noted HEENMT: normocephalic, atraumatic, EOMI, sclera
[2021-03-28] MEDS: RIVAROXABAN 15 MG TABLET PO (08:46)
== END 2021-03-28 09:00 | disposition home or self-care (01) ==
LOC: ANHED 02:58 → ANH3MEDSUR 03:29
PROVIDERS: Physician Assistant; Admitting Provider Internal Medicine; Emergency Provider Emergency Medicine; PCP Family Medicine; Visit Provider Internal Medicine
DX: I26.99 Other pulmonary embolism without acute cor pulmonale (principal); E07.9 Disorder of thyroid, unspecified; R91.8 Other nonspecific abnormal finding of lung field; R07.9 Chest pain, unspecified; R06.02 Shortness of breath; K21.9 Gastro-esophageal reflux disease without esophagitis; Z20.822 Contact with and (suspected) exposure to COVID-19
CPT/HCPCS: 36415; 71046; 71275; 74177; 76536; 80048; 80053; 81001; 83605; 83690; 83735; 84443; 84484; 85025; 85027; 85610; 85730; 93005; 93306; 93970; 96361; 96365; 96366; 96375; 99285; A9270; C9803; G0378; G0379; J1644; J2270; J2405; J7030; Q9967; U0003; U0005

== ENCOUNTER 2021-04-10 13:02 | Outpatient (CLI) | payer OTHER, SELFPAY ==
--- NOTE | ~2021-04-10 | US_ITS ---
EXAMINATION: US FNA w image guidance DATE: 04/10/2021 14:14 INDICATION: Right thyroid nodule. TECHNIQUE: The procedure and its benefits and risks were discussed with the patient. Risks specifically discusse d included bleeding. The patient verbalized understanding of the risks and agreed to proceed. The nec k was prepped and draped in the usual sterile manner. 1% lidocaine was used for local anesthesia. 5 passes were made with a 25G needle into the lesion under ultrasound guidance. There were no immedia te complications. The patient understood to call the ordering physician for results after a week and verbalized that understanding. FINDINGS: Grayscale ultrasound images demonstrate needles advanced into a 6.3 cm nodule in right thyroid lobe f or biopsy. IMPRESSION: 1. Ultrasound-guided fine needle aspiration of a right thyroid nodule. Reviewed, dictated and finalized at location A.
== END 2021-04-10 13:03 | disposition home or self-care (01) ==
LOC: ANHIMG 13:07
PROVIDERS: PCP Family Medicine; Visit Provider Physician Assistant
DX: E07.9 Disorder of thyroid, unspecified (principal)
CPT/HCPCS: 10005; 88173; 88305

== ENCOUNTER 2022-01-01 15:47 | Outpatient (CLI) | payer OTHER, SELFPAY ==
[2022-01-04 21:17] LABS: Antithrombin III Activity 112 % normal (80-135)
== END 2022-01-01 15:48 | disposition home or self-care (01) ==
LOC: ANHLAB 15:48
PROVIDERS: PCP Family Medicine; Visit Provider Physician Assistant
DX: I26.99 Other pulmonary embolism without acute cor pulmonale (principal)
CPT/HCPCS: 36415; 81241; 85300; 85303; 85306

== ENCOUNTER 2022-01-02 15:47 | Outpatient (CLI) | payer OTHER, SELFPAY ==
[2022-01-13 22:58] LABS: Factor V (Leiden) Mutation NEGATIVE
== END 2022-01-02 15:48 | disposition home or self-care (01) ==
PROVIDERS: PCP Family Medicine; Visit Provider Family Medicine
DX: I26.99 Other pulmonary embolism without acute cor pulmonale (principal)
CPT/HCPCS: 36415; 81241

== ENCOUNTER → 2022-05-03 09:00 | Outpatient (CLI) | payer OTHER, SELFPAY ==
--- NOTE | ~2022-05-03 | US_ITS ---
EXAMINATION: US thyroid DATE: 05/03/2022 09:14 INDICATION: Nontoxic single thyroid nodule. TECHNIQUE: Multiple ultrasound images of the thyroid were obtained. COMPARISON: Ultrasound 03/26/2021 FINDINGS: The right thyroid lobe measures 7.6 x 4.2 x 5.2 cm. The left thyroid lobe measures 4.5 x 0.9 x 1.4 c m. In the right thyroid lobe, there is a 6.7 cm solid, hypoechoic, wider than tall nodule with lobul ated margin without echogenic foci (TI-RADS TR4). IMPRESSION: 1. Right thyroid nodule, stable from 03/26/2021. Biopsy on 04/10/2021 was benign. Reviewed, dictated and finalized at location A. E MANAGER IMPRESSION: 1. Right thyroid nodule, stable from 03/26/2021. Biopsy on 04/10/2021 was kristina martel
== END ==
PROVIDERS: PCP Otolaryngology; Visit Provider Otolaryngology
DX: E04.1 Nontoxic single thyroid nodule (principal)
CPT/HCPCS: 76536

== ENCOUNTER 2022-09-02 12:51 | Outpatient (CLI) | payer OTHER, SELFPAY | END 2022-09-02 12:52 | disposition home or self-care (01) | PROVIDERS: PCP Family Medicine; Visit Provider Physician Assistant | DX: H90.3 Sensorineural hearing loss, bilateral (principal) | CPT/HCPCS: 92557; 92567 ==

== ENCOUNTER 2022-09-30 13:00 | Outpatient (RCR) | payer OTHER, SELFPAY | END 2022-10-03 08:33 | disposition other institution (70) | LOC: ANHAUDASC 13:00 | PROVIDERS: PCP Family Medicine; Visit Provider Family Medicine | DX: Z46.1 Encounter for fitting and adjustment of hearing aid (principal) | CPT/HCPCS: 99199; V5261 ==

== ENCOUNTER 2023-09-26 11:35 | Outpatient (CLI) | payer OTHER, SELFPAY ==
[2023-09-26 12:07] LABS: Hematocrit 48.5 % (42.0-52.0); Hemoglobin 16.6 g/dL (14.0-18.0); Mean Corpuscular HGB Conc 34.2 g/dl (32-36); Mean Corpuscular Hemoglobin 31.4 pg (26-34); Mean Corpuscular Volume 91.7 fl (80-100); Mean Platelet Volume 8.8 fl (7.4-10.4); Platelet Count Result 252 k/mm3 (150-375); Red Blood Count 5.29 M/mm3 (4.6-6.20); Red Cell Distribution Width 13.1 % (11.5-14.5); White Blood Count 5.8 K/mm3 (4.5-10.0)
[2023-09-26 12:11] LABS: Appearance Urine Clear (Clear); Bilirubin Urine Negative (Negative); Blood Urine Negative (Negative); Color Urine Yellow (Yellow); Glucose Urine UA Negative (Negative); Ketones Urine Negative (Negative); Leukocyte Esterase Ur Negative LEU/UL (Negative); Nitrate Urine Negative (Negative); Protein Urine Negative (Negative); Urobilinogen Urine 0.2 mg/dL (<2.0)
[2023-09-26 12:16] LABS: Add Urine Microscopic? NO; Specific Grav Ur 1.003 (1.001-1.035)
[2023-09-26 12:17] LABS: Alanine Aminotransferase 52 U/L (6-50); Alkaline Phosphatase 88 U/L (38-126); Anion Gap 12 mmol/L (4-12); Aspartate Amino Transferase 35 U/L (17-59); Bilirubin,Total 1.4 mg/dL (0.2-1.3); Blood Urea Nitrogen 10 mg/dL (9-20); Calcium 10.3 mg/dL (8.4-10.2); Carbon Dioxide 20 mmol/L (22-30); Chloride 109 mmol/L (98-107); Cholesterol 198 mg/dL (0-200); Estimated Glomerular Filt Rate > 60; Glucose 98 mg/dL (65-110); HDL Direct 38 mg/dL; Sodium 141 mmol/L (137-145); Triglycerides 193 mg/dL (<150)
[2023-09-26 12:22] LABS: Hemoglobin A1C 5.1 % (<5.7)
[2023-09-26 12:28] LABS: LDL Cholesterol Direct 127 mg/dL
[2023-09-26 12:47] LABS: Prostate Specific Antigen 0.9 ng/mL (< OR = 4.0)
== END 2023-09-26 11:36 | disposition home or self-care (01) ==
LOC: ANHLAB 11:36
PROVIDERS: PCP Family Medicine; Visit Provider Physician Assistant
DX: Z00.00 Encounter for general adult medical examination without abnormal findings (principal); E04.1 Nontoxic single thyroid nodule; I26.99 Other pulmonary embolism without acute cor pulmonale; R73.01 Impaired fasting glucose; Z12.5 Encounter for screening for malignant neoplasm of prostate
CPT/HCPCS: 36415; 80053; 80061; 81003; 83036; 84153; 84443; 85027

== ENCOUNTER 2023-10-24 08:48 | Outpatient (CLI) | payer OTHER, SELFPAY ==
--- NOTE | ~2023-10-24 | US_ITS ---
EXAMINATION: US thyroid DATE: 10/24/2023 09:07 INDICATION: Nontoxic single thyroid nodule. TECHNIQUE: Multiple ultrasound images of the thyroid were obtained. COMPARISON: Ultrasound 04/02/2022, 03/26/2021 FINDINGS: The right thyroid lobe measures 7.6 x 6.3 x 4.6 cm. The left thyroid lobe measures 6.7 x 5.0 x 3.8 c m. In the right thyroid lobe, there is a 6.8 cm solid, hypoechoic, wider than tall nodule with lobul ated margin without echogenic foci (TI-RADS TR4). IMPRESSION: 1. Right thyroid nodule, stable from 03/26/2021. Biopsy on 04/10/2021 was benign. Reviewed, dictated and finalized at location A. IMPRESSION: 1. Right thyroid nodule, stable from 03/26/2021. Biopsy on 04/10/2021 was kristina martel
== END 2023-10-24 08:49 ==
PROVIDERS: PCP Family Medicine; Visit Provider Family Medicine
DX: E04.1 Nontoxic single thyroid nodule (principal)
CPT/HCPCS: 76536

== ENCOUNTER 2023-12-29 12:53 | Outpatient (CLI) | payer OTHER, SELFPAY | END 2023-12-29 12:54 | disposition home or self-care (01) | LOC: ANHAUDASC 12:54 | PROVIDERS: PCP Family Medicine; Visit Provider Family Medicine | DX: Z01.10 Encounter for examination of ears and hearing without abnormal findings (principal); H90.3 Sensorineural hearing loss, bilateral; H93.13 Tinnitus, bilateral | CPT/HCPCS: 92557 ==

== ENCOUNTER 2024-10-27 16:09 | Outpatient (CLI) | payer OTHER, SELFPAY ==
--- NOTE | ~2024-10-27 | US_ITS ---
US thyroid INDICATION: Nontoxic thyroid nodule. Previous benign biopsy of right thyroid mass. TECHNIQUE: Real-time sonographic images of the thyroid gland were obtained. COMPARISON: Comparison to multiple prior studies sequentially, with oldest reviewed study dated 03/16. FINDINGS: The right thyroid lobe measures 7.2 x 4.7 x 5 cm. The left thyroid lobe measures . There i s normal echotexture and echogenicity throughout the thyroid gland. In the right lobe there is a christin d hyperechoic mass with lobulated margins which is wider than tall, no internal echogenic foci, TR 4. This mass largely replaces the right thyroid lobe Normal vascular flow is present. IMPRESSION: 1. No significant change to complex slightly hyperechoic right thyroid mass measuring up to 7.2 cm, TR 4. This was previously biopsy-proven benign. Reviewed, dictated and finalized at location A. IMPRESSION: 1. No significant change to complex slightly hyperechoic right thyroid mass me asuring up to 7.2 cm, TR 4. This was previously biopsy-proven benign.
--- OUTSIDE RECORDS SUMMARY | 2024-10-27 16:12 | XMS_ITS | Clinical Summary ---
Author Organization [facility] Address [address] [place] [id number] Care Team Providers Care Campaign Associate Name Role Phone Unavailable Primary Care Provider Unavailabl e Social History Tobacco Use Types Packs/Day Years Used Date Smoking Tobacco: Never Assessed Sex and Gender Information Value Date Recorded Sex Assigned at Not on file Legal Sex Male 8:10 PM CDT Gender Identity Not on file Sexual Orientation Not on file Plan of Treatment Health Maintenance Due Date Last Done Comments Colorectal Cancer Screening Colonoscopy (10 Years) 1970 Annual Physical 1971 Hepatitis C 1986 DTaP, Tdap and Td Vaccines ( 1 - Tdap) 1987 Hepatitis B Vaccines (1 of 3 - 19+ 3-dose series) 1987 Pneumococcal Vaccine: 50+ Ye ars (1 of 1 - PCV) 2018 Zoster Vaccines (1 of 2) 2018 COVID-19 Vaccine (2023-2 5 season) 2024 Meningococcal B Vaccine Aged Out No l onger eligible based on patient's age to complete this topic Meningococcal Vaccine Aged Out No suzi yonny eligible based on patient's age to complete this topic RSV Immunizations Under 20 Months Aged Out No longer eligible based on patient's age to complete this topic
== END 2024-10-27 16:10 | disposition home or self-care (01) ==
PROVIDERS: PCP Family Medicine; Visit Provider Family Medicine
DX: E04.1 Nontoxic single thyroid nodule (principal)
CPT/HCPCS: 76536

== ENCOUNTER 2024-11-01 09:24 | Outpatient (CLI) | payer OTHER, SELFPAY ==
[2024-11-01 09:44] LABS: Hematocrit 47.5 % (42.0-52.0); Hemoglobin 16.4 g/dL (14.0-18.0); Mean Corpuscular HGB Conc 34.5 g/dl (32-36); Mean Corpuscular Hemoglobin 31.7 pg (26-34); Mean Corpuscular Volume 91.9 fl (80-100); Mean Platelet Volume 8.9 fl (7.4-10.4); Platelet Count Result 217 k/mm3 (150-375); Red Blood Count 5.17 M/mm3 (4.6-6.20); Red Cell Distribution Width 12.9 % (11.5-14.5); White Blood Count 5.8 K/mm3 (4.5-10.0)
[2024-11-01 09:50] LABS: Add Urine Microscopic? NO; Appearance Urine Clear (Clear); Bilirubin Urine Negative (Negative); Blood Urine Negative (Negative); Color Urine Yellow (Yellow); Glucose Urine UA Negative (Negative); Ketones Urine Negative (Negative); Leukocyte Esterase Ur Negative LEU/UL (Negative); Nitrate Urine Negative (Negative); Protein Urine Negative (Negative); Specific Grav Ur 1.006 (1.001-1.035); Urobilinogen Urine 0.2 mg/dL (<2.0)
--- OUTSIDE RECORDS SUMMARY | 2024-11-01 09:50 | XMS_ITS | Clinical Summary ---
Author Organization [facility] Address [address] [place] [id number] Care Team Providers Care [employer] Products Sales Engineer Name Role Phone Unavailable Primary Care Provider [...]
[2024-11-01 09:54] LABS: Alanine Aminotransferase 37 U/L (6-50); Albumin Level 4.7 g/dL (3.5-5.1); Alkaline Phosphatase 81 U/L (38-126); Anion Gap 8 mmol/L (4-12); Aspartate Amino Transferase 37 U/L (17-59); Blood Urea Nitrogen 15 mg/dL (9-20); Calcium 9.2 mg/dL (8.4-10.2); Carbon Dioxide 22 mmol/L (22-30); Chloride 109 mmol/L (98-107); Cholesterol 192 mg/dL (0-200); Estimated Glomerular Filt Rate > 60; Glucose 95 mg/dL (65-110); HDL Direct 39 mg/dL; Potassium 4.1 mmol/L (3.4-5.0); Sodium 139 mmol/L (137-145); Triglycerides 204 mg/dL (<150)
[2024-11-01 10:05] LABS: LDL Cholesterol Direct 110 mg/dL
[2024-11-01 10:24] LABS: Prostate Specific Antigen 1.5 ng/mL (< OR = 4.0)
== END 2024-11-01 09:25 | disposition home or self-care (01) ==
LOC: ANHLAB 09:25
PROVIDERS: PCP Family Medicine; Visit Provider Family Medicine
DX: Z00.00 Encounter for general adult medical examination without abnormal findings (principal); R35.1 Nocturia
CPT/HCPCS: 36415; 80053; 80061; 81003; 84153; 84443; 85027